=== PATIENT | female | born 1960 | race African-American/Black ===

== ENCOUNTER 2022-03-23 16:19 | Emergency (ER) | payer MEDICAID ==
[~2022-03-23] VITALS: Ht 162.6 cm; Wt 50.0 kg
[~2022-03-23 16:19] MED LIST: METF-414 PO
[2022-03-23] MEDS ORDERED: ONDANSETRON HCL 4MG/2ML INJ IV STA (17:45)
[2022-03-23] MEDS ORDERED: SODIUM CHLORIDE 0.9% 1,000 ML IV ONE (17:45)
[2022-03-23] MEDS ORDERED: KETOROLAC 30MG/ML VIAL IV STA (17:45)
[2022-03-23 18:15] LABS: BASOPHILS % 0.4 % (0.0-2.0); HEMATOCRIT. 45.7 % (36.0-48.0); HEMOGLOBIN. 15.5 g/dL (12.0-16.0); LYMPHOCYTES % 10.1 % (20.0-50.0); MEAN CORPUSCULAR HEMOGLOBIN 27.8 pg (28.0-32.0); MEAN CORPUSCULAR VOLUME 81.7 fL (81.0-99.0); MEAN PLATELET VOLUME 7.4 fl (7.4-10.4); NEUTROPHILS % 87.5 % (40.0-76.0); PLATELET 397 x1000/uL (130-400); RED BLOOD CELL COUNT 5.59 mill/uL (4.2-5.4); RED CELL DISTRIBUTION WIDTH 14.3 % (11.6-14.6)
[2022-03-23 18:26] VITALS: BP 125/99
[2022-03-23 19:54] LABS: CHLORIDE 100 mEq/L (98-107)
[2022-03-23 20:02] LABS: ETHANOL BLOOD < 10 mg/dL
[2022-03-23] MEDS ORDERED: NITR-87 MT (20:45)
[2022-03-23] MEDS ORDERED: OMEP40CA20 MT (20:45)
[2022-03-23] MEDS ORDERED: ONDA4TAB50 MT (20:45)
== END 2022-03-23 22:15 | disposition home or self-care (01) ==
LOC: ER 16:19
DX: R10.9 Unspecified abdominal pain (principal); E11.65 Type 2 diabetes mellitus with hyperglycemia; E11.9 Type 2 diabetes mellitus without complications; I10 Essential (primary) hypertension; Z88.0 Allergy status to penicillin
CPT/HCPCS: 36415; 74176; 80053; 80320; 83690; 85025; 96361; 96374; 96375; 99284; J1885; J2405; J7030; G0480

== ENCOUNTER 2023-01-14 19:38 | Emergency (ER) | payer MEDICAID ==
[~2023-01-14] VITALS: Ht 152.4 cm; Wt 57.0 kg
[~2023-01-14 19:38] MED LIST changes: +ATOR80TA PO; +HUM100IN SQ; -METF-414 PO; +METF-873 PO; +OMEP20CA14 PO; +ONDA4TAB50 MT; +SUCR1TAB PO; +[UNRECOGNIZED DRUG - CODE] SQ
[2023-01-14 19:50] VITALS: BP 142/91; PULSE 90; RESP 18; TEMP 98.9; O2SAT 99
[2023-01-14] MEDS ORDERED: KETOROLAC 30MG/ML VIAL IV STA (21:04)
[2023-01-14] MEDS ORDERED: ONDANSETRON HCL 4MG/2ML INJ IV STA (21:04)
[2023-01-14] MEDS ORDERED: PANTOPRAZOLE SODIUM 40 MG/VIAL IV ONE (21:15)
[2023-01-14] MEDS ORDERED: SODIUM CHLORIDE 0.9% 500 ML IV ONE (21:15)
[2023-01-14 21:17] LABS: CHLORIDE 100 mEq/L (98-107); INDEX HEMOLYSI 1 (1-3); INDEX ICTERIC 1 (1-4); INDEX LIPEMIC 1 (1-3); POTASSIUM 3.3 mEq/L (3.5-5.1); SODIUM 137 mEq/L (136-145)
[2023-01-14 21:25] LABS: ALANINE AMINOTRANSFERASE 21 IU/L (13-61); ALBUMIN 4.1 g/dL (3.4-5.0); ASPARTATE AMINOTRANSFERASE 13 IU/L (15-37); BILIRUBIN TOTAL 0.4 mg/dL (0.1-1.0); CALCIUM 9.8 mg/dL (8.5-10.1); CARBON DIOXIDE 26 mEq/L (21-32); CREATININE 0.8 mg/dL (0.6-1.3); GLUCOSE 345 mg/dL (70-105); PROTEIN TOTAL 9.3 g/dL (6.0-8.3); UREA NITROGEN BLOOD 18 mg/dL (7-21)
[2023-01-14 21:36] LABS: BASOPHILS % 0.1 % (0.0-2.0); HEMATOCRIT. 47.9 % (36.0-48.0); HEMOGLOBIN. 16.2 g/dL (12.0-16.0); MEAN CORPUSCULAR HGB CONC 33.8 g/dL (31.0-37.0); MEAN CORPUSCULAR VOLUME 82.9 fL (81.0-99.0); MEAN PLATELET VOLUME 7.6 fl (7.4-10.4); MONOCYTES % 2.5 % (2.0-8.0); NEUTROPHILS % 89.4 % (40.0-76.0); PLATELET 442 x1000/uL (130-400); RED BLOOD CELL COUNT 5.78 mill/uL (4.2-5.4); RED CELL DISTRIBUTION WIDTH 13.4 % (11.6-14.6); WHITE BLOOD COUNT 13.1 x1000/uL (4.5-11.0)
== END 2023-01-14 22:00 | disposition left against medical advice (07) ==
LOC: ER 19:38
DX: R10.84 Generalized abdominal pain (principal); R11.2 Nausea with vomiting, unspecified; E87.6 Hypokalemia; E11.9 Type 2 diabetes mellitus without complications; I10 Essential (primary) hypertension; I25.2 Old myocardial infarction; Z79.899 Other long term (current) drug therapy; Z88.0 Allergy status to penicillin
CPT/HCPCS: 99283; 80053; 83690; 85025; 36415; J7030

== ENCOUNTER 2024-08-18 22:06 | Emergency (ER) | payer MEDICAID ==
[~2024-08-18] VITALS: Ht 167.6 cm; Wt 68.0 kg
[~2024-08-18 22:06] MED LIST changes: +ATOR-388 PO; -ATOR80TA PO; +METF-1149 PO; -METF-873 PO; +METO-293 MT; +METO-539 MT; +OMEP40CA20 MT
[2024-08-18 22:08] VITALS: O2SAT 100
[2024-08-18] MEDS ORDERED: MORPHINE SULFATE 4 MG/ML INJ (FOR IV/IM USE) IV STA (22:37)
[2024-08-18] MEDS ORDERED: METOCLOPRAMIDE HCL 10MG/2ML VIAL IV STA (22:37)
[2024-08-18] MEDS: ONDANSETRON HCL 4MG/2ML INJ IM NR (23:23)
[2024-08-18] MEDS: ONDANSETRON 4MG/2ML INJ IM ONE (23:23)
[2024-08-18] MEDS: MORPHINE SULFATE 4 MG/ML INJ (FOR IV/IM USE) IM ONE (23:23)
[2024-08-19 00:14] LABS: HEMATOCRIT. 42.4 % (36.0-48.0); HEMOGLOBIN. 13.6 g/dL (12.0-16.0); MEAN CORPUSCULAR HEMOGLOBIN 26.4 pg (28.0-32.0); MEAN CORPUSCULAR VOLUME 82.5 fL (81.0-99.0); MEAN PLATELET VOLUME 6.8 fl (7.4-10.4); PLATELET 322 x1000/uL (130-400); RED BLOOD CELL COUNT 5.14 mill/uL (4.2-5.4); RED CELL DISTRIBUTION WIDTH 16.9 % (11.6-14.6); WHITE BLOOD COUNT 10.2 x1000/uL (4.5-11.0)
[2024-08-19 00:17] LABS: DIFFERENTIAL COMMENT 1
[2024-08-19 00:38] VITALS: BP 149/96; PULSE 94; RESP 18
[2024-08-19] MEDS: KETOROLAC 30MG/ML VIAL IM NR (00:38)
[2024-08-19 01:35] LABS: CARBON DIOXIDE 25 mEq/L (21-32); CHLORIDE 104 mEq/L (98-107); POTASSIUM 4.3 mEq/L (3.5-5.1); SODIUM 141 mEq/L (136-145)
[2024-08-19 01:36] LABS: CALCIUM 9.9 mg/dL (8.7-10.4)
[2024-08-19 01:41] LABS: GLUCOSE 293 mg/dL (70-105); UREA NITROGEN BLOOD 14 mg/dL (9-23)
[2024-08-19 01:42] LABS: ALANINE AMINOTRANSFERASE 10 IU/L (10-49); ASPARTATE AMINOTRANSFERASE 14 IU/L (<34)
[2024-08-19 01:43] LABS: ALBUMIN 4.7 g/dL (3.2-4.8); BILIRUBIN TOTAL 0.3 mg/dL (0.1-1.0); PROTEIN TOTAL 8.5 g/dL (6.0-8.3)
[2024-08-19 01:49] LABS: BILIRUBIN DIRECT < 0.1 mg/dL (<=3.0)
[2024-08-19 03:53] LABS: PLATELET ESTIMATE NORMAL
== END 2024-08-19 02:41 | disposition left against medical advice (07) ==
LOC: ER 22:06
DX: R07.89 Other chest pain (principal); R11.2 Nausea with vomiting, unspecified; E11.9 Type 2 diabetes mellitus without complications; I10 Essential (primary) hypertension; I25.2 Old myocardial infarction; Z79.84 Long term (current) use of oral hypoglycemic drugs; Z79.899 Other long term (current) drug therapy; Z88.0 Allergy status to penicillin
CPT/HCPCS: 85025; 36415 ×2; 96372 ×2; 99284; 80076; 80048; 83605; J2405; J2270; J1885; Z7610